=== PATIENT | female | born 1950 | race Caucasian/White ===

== ENCOUNTER 2022-12-04 08:52 | Emergency (ER) | payer MEDICARE ==
[~2022-12-04] VITALS: Ht 167.6 cm; Wt 76.8 kg
[2022-12-04] MEDS ORDERED: ELIQUIS5 MG PO (09:03)
[2022-12-04] MEDS ORDERED: FLECAINIDE ACE100 MG PO (09:04)
[2022-12-04] MEDS ORDERED: METOPROLOL SUCC25 M1 PO (09:04)
[2022-12-04] MEDS ORDERED: ZYLOPRIM 100MG100 MG PO (09:04)
[2022-12-04 10:56] VITALS: BP 152/74
== END 2022-12-04 10:12 | disposition home or self-care (01) ==
LOC: ED 08:52
DX: S00.83XA Contusion of other part of head, initial encounter (principal); M79.641 Pain in right hand; Z79.01 Long term (current) use of anticoagulants; W01.198A Fall on same level from slipping, tripping and stumbling with subsequent striking against other object, initial encounter; Y92.59 Other trade areas as the place of occurrence of the external cause